=== PATIENT | male | born 1965 | race Caucasian/White ===

== ENCOUNTER 2018-08-12 09:40 | Day surgery (SDC) | payer OTHER ==
[2018-08-12 10:14] VITALS: BMI 31.1
[2018-08-12 14:10] VITALS: BP 110/68; PULSE 59; TEMP 98.9
--- NOTE | 2018-08-13 17:43 | PATH ---
Surgical Pathology Report Patient Name: CINDY TOBAR Med. Rec. #: [id number] /Age/Gender: 1965 (Age: 53) / M Account: [id number] Location: [facility] Taken: 08/12/2018 Received: 08/12/2018 Reported: 08/13/2018 Physicians: Mookie Mcgregor D.O. Specimen(s) Received A: RIGHT COLON POLYP B: RECTOSIGMOID POLYP Clinical History Colorectal cancer screening Postoperative diagnosis: Colon polyps Final Diagnosis A. RIGHT COLON POLYP, POLYPECTOMY: HYPERPLASTIC POLYP. B. RECTOSIGMOID POLYP, POLYPECTOMY: HYPERPLASTIC POLYP. Electronically Signed Leobardo Herrera M.D. Gross Description A. Received in formalin, labeled "polyp right colon" are 3 pelaez, irregular portions of soft tissue ranging from 0.1-0.6 cm. in greatest dimension. The specimens are submitted in toto in one cassette. B. Received in formalin, labeled "polyp rectosigmoid" is a pelaez, irregular portion of soft tissue measuring 0.4 cm. in greatest dimension. The specimen is submitted in toto in one cassette. /08/12/2018 saudi08/12/2018
== END 2018-08-12 13:30 | disposition home or self-care (01) ==
LOC: JASU-ENDO 09:40
PROVIDERS: ATTEND Internal Medicine Gastroenterology
PROC: 0DBN8ZX Excision of Sigmoid Colon, Via Natural or Artificial Opening Endoscopic, Diagnostic (ICD-10-PCS; 2018-08-12)
PROC: 0DBF8ZX Excision of Right Large Intestine, Via Natural or Artificial Opening Endoscopic, Diagnostic (ICD-10-PCS; principal; 2018-08-12 11:00)
DX: Z12.11 Encounter for screening for malignant neoplasm of colon (principal); K64.8 Other hemorrhoids; D12.6 Benign neoplasm of colon, unspecified
CPT/HCPCS: 88305-TC